=== PATIENT | female | born 1965 | race Caucasian/White ===

== ENCOUNTER 2018-02-06 16:19 | Emergency (ER) | payer MEDICAID ==
[~2018-02-06] VITALS: Ht 167.6 cm; Wt 90.9 kg
[~2018-02-06 16:19] MED LIST: ADVIL200 MG PO; CHANTIX 1MG1 MG PO; DESYREL DIVIDO150 M1 PO; ELAVIL100 MG PO; KEPPRA 500MG500 MG PO; LATUDA80 MG PO; LIPITOR 10MG10 MG PO; MOBIC15 MG PO; NEURONTIN100 MG/CAP PO; REMERON45 MG PO
[2018-02-06 16:24] VITALS: TEMP 97.9
[2018-02-06 16:34] LABS: COLLECTION METHOD CLEAN CATCH
[2018-02-06 16:46] LABS: PH 6 (5-8); URINE APPEARANCE Hazy; URINE BACTERIA None Seen /hpf; URINE BILIRUBIN Negative (NEGATIVE); URINE BLOOD 3+ (NEGATIVE); URINE COLOR Amber; URINE GLUCOSE Negative (NEGATIVE); URINE KETONE Negative (NEGATIVE); URINE LEUKOCYTE ESTERASE 2+ (NEGATIVE); URINE NITRATE Positive (NEGATIVE); URINE PROTEIN(semi-quant) 2+ (NEGATIVE); URINE RBC >50 /hpf; URINE UROBILINOGEN >=4.0 mg/dL (NEGATIVE)
[2018-02-06 17:55] LABS: BASO % 0.2 % (0.0-2.0); EOS % 0.1 % (0-4.0); GRAN # 8.7 (1.4-6.5); GRAN % 70.6 % (42.2-75.2); HEMATOCRIT 39.8 % (37.0-47.0); HEMOGLOBIN 13.8 g/dl (12.5-16.0); LYMPH # 2.2 (1.2-3.4); MEAN CELL VOLUME 89 fl (80.0-100.0); MEAN CORPUSCULAR HEMOGLOBIN 31 pg (27.0-31.0); MEAN CORPUSCULAR HGB CONC 35 g/dl (33.0-37.0); MEAN PLATELET VOLUME 9.7 fl (7.4-10.4); MONO # 1.3 (0.1-0.6); MONO % 10.5 % (1.7-9.3); PLATELET COUNT 302 K/mm3 (130-400); RED BLOOD COUNT 4.47 M/mm3 (4.10-5.30)
[2018-02-06] MEDS ORDERED: ROZEREM 8MG TABL8 MG PO (18:15)
[2018-02-06] MEDS ORDERED: PERCOCET 325 MG1 TA2 PO (18:16)
[2018-02-06 18:19] LABS: BILIRUBIN,TOTAL 0.5 mg/dL (0.0-1.0); CREATININE, serum 0.75 mg/dL (0.52-1.25); POTASSIUM 3.7 mmol/L (3.4-5.0); TOTAL PROTEIN 7.3 gm/dL (6.4-8.2)
[2018-02-06] MEDS ORDERED: CIPRO 500MG TA500 MG PO (19:12)
[2018-02-06 19:23] VITALS: BP 128/80; PULSE 80
== END 2018-02-06 19:26 | disposition home or self-care (01) ==
LOC: COL.ER 16:19
PROVIDERS: Emergency Medicine
DX: N23 Unspecified renal colic (principal); E83.52 Hypercalcemia; Z87.442 Personal history of urinary calculi
CPT/HCPCS: J0780; J1170; J1885; J7030

== ENCOUNTER 2019-12-22 18:20 | Emergency (ER) | payer MEDICAID ==
[~2019-12-22] VITALS: Ht 167.6 cm; Wt 81.4 kg
[~2019-12-22 18:20] MED LIST changes: +CIPRO 500MG TA500 MG PO; +PERCOCET 325 MG1 TA2 PO; +ROZEREM 8MG TABL8 MG PO
[2019-12-22] MEDS ORDERED: PREDNISONE20 MG PO (19:57)
[2019-12-22] MEDS ORDERED: EPIPEN 2-PAK1 MG/ML IM (19:57)
[2019-12-22 20:30] VITALS: BP 140/70; PULSE 80; TEMP 98.4
== END 2019-12-22 20:30 | disposition home or self-care (01) ==
LOC: COL.ER 18:20
DX: T63.441A Toxic effect of venom of bees, accidental (unintentional), initial encounter (principal); R06.02 Shortness of breath; E11.9 Type 2 diabetes mellitus without complications; F17.210 Nicotine dependence, cigarettes, uncomplicated; Z88.2 Allergy status to sulfonamides; Z79.52 Long term (current) use of systemic steroids
CPT/HCPCS: J7512